=== PATIENT | male | born 1995 | race Native Hawaiian/Other Pacific Islander ===

== ENCOUNTER 2021-11-28 10:52 | Outpatient (CLI) | payer OTHER ==
[~2021-11-28 10:52] MED LIST: ACID CONTROL75 MG OR; AMLO2.5T PO; MAG OXIDE400 M2 OR; MYCOPHENOLAT500 MG OR; PRAVASTATIN10 MG PO; TACROLIMUS1 MG OR
== END 2021-11-28 19:53 | disposition home or self-care (01) ==
LOC: LAB 10:52
PROVIDERS: ATTEND Internal Medicine
DX: U07.1 COVID-19 (principal); R50.9 Fever, unspecified
CPT/HCPCS: 87502; 87635; 87651; U0003

== ENCOUNTER 2022-10-06 11:50 | Outpatient (CLI) | payer OTHER ==
[2022-10-06 12:08] LABS: PLATELET COUNT 295 K/uL (142-355)
[2022-10-06 12:30] LABS: POTASSIUM 4.7 mmol/L (3.6-5.2)
== END 2022-10-06 18:59 | disposition home or self-care (01) ==
LOC: LAB 11:50
PROVIDERS: ATTEND Internal Medicine
DX: E78.00 Pure hypercholesterolemia, unspecified (principal); Z94.1 Heart transplant status
CPT/HCPCS: 80053; 80061; 83735; 84439; 84443; 85027